=== PATIENT | female | born 1980 | race Caucasian/White ===

== ENCOUNTER 2020-11-20 09:19 | Emergency (ER) | payer MEDICARE ==
[~2020-11-20] VITALS: Ht 154.9 cm; Wt 176.9 kg
== END 2020-11-20 11:51 | disposition left against medical advice (07) ==
LOC: ER 09:48
DX: T76.21XA Adult sexual abuse, suspected, initial encounter (principal); R42 Dizziness and giddiness; Z53.21 Procedure and treatment not carried out due to patient leaving prior to being seen by health care provider
CPT/HCPCS: 99284